=== PATIENT | male | born 1980 | race Caucasian/White ===

== ENCOUNTER 2019-03-26 10:48 | Emergency (ER) | payer SELFPAY ==
[~2019-03-26] VITALS: Ht 165.1 cm; Wt 69.0 kg
[2019-03-26] MEDS ORDERED: IBUPROFEN 600MG TABLET PO ONE (12:15)
[2019-03-26 12:40] VITALS: BP 128/88
== END 2019-03-26 12:43 | disposition home or self-care (01) ==
LOC: ER 10:54
DX: S50.02XA Contusion of left elbow, initial encounter (principal); S50.01XA Contusion of right elbow, initial encounter; S00.83XA Contusion of other part of head, initial encounter; F17.200 Nicotine dependence, unspecified, uncomplicated; Y08.89XA Assault by other specified means, initial encounter; Y93.89 Activity, other specified; Y92.89 Other specified places as the place of occurrence of the external cause; Y99.8 Other external cause status
CPT/HCPCS: 99283

== ENCOUNTER 2019-07-30 14:13 | Emergency (ER) | payer SELFPAY ==
[~2019-07-30] VITALS: Ht 167.6 cm; Wt 90.0 kg
[2019-07-30 14:30] VITALS: BP 128/73
[2019-07-30] MEDS ORDERED: TETRACAINE 0.5% OPHTH DROPS 4ML LEFTEYE ONE (16:15)
[2019-07-30] MEDS ORDERED: TETRACAINE 0.5% OPHTH DROPS 4ML LEFTEYE NR (16:15)
[2019-07-30] MEDS ORDERED: FLUORESCEIN SODIUM 1MG/STRIP LEFTEYE ONE (16:15)
[2019-07-30] MEDS ORDERED: FLUORESCEIN SODIUM 1MG/STRIP LEFTEYE NR (16:30)
[2019-07-30] MEDS ORDERED: TETANUS, DIPHTHERIA, PERTUSSIS VAC/PF 0.5ML (>7YR OLD) IM ONE (16:45)
[2019-07-30] MEDS ORDERED: ACETAMINOPHEN 500MG TABLET PO ONE (16:45)
== END 2019-07-30 16:57 | disposition home or self-care (01) ==
LOC: ER 15:13
DX: T15.02XA Foreign body in cornea, left eye, initial encounter (principal); X58.XXXA Exposure to other specified factors, initial encounter; Y93.89 Activity, other specified; Y92.89 Other specified places as the place of occurrence of the external cause; Y99.8 Other external cause status
CPT/HCPCS: 90471; 90715; 99283